=== PATIENT | female | born 2000 | race Hispanic/Latino ===

== ENCOUNTER 2021-09-03 14:04 | Emergency (ER) | payer OTHER, SELFPAY ==
[2021-09-03] VITALS (19 sets, daily range): BP systolic 88–106; BP diastolic 50–68; PULSE 58–81; RESP 13–20; TEMP 36.3; O2SAT 95–100
[2021-09-03 14:41] LABS: Basophils Percent Auto 0.5 % (0.2-1.2); Eosinophils Absolute Auto 0.1 K/mm3 (0-0.3); Eosinophils Percent Auto 0.8 % (0-4.4); Hematocrit 36.1 % (37.0-47.0); Hemoglobin 12.3 g/dL (12.0-15.0); Immature Granulocyte Absolute 0.02 K/mm3 (0.00-0.031); Immature Granulocyte Percent A 0.3 % (0-0.5); Lymphocytes Absolute Auto 2.79 K/mm3 (0.9-3.2); Lymphocytes Percent Auto 38.2 % (18.3-44.2); Mean Corpuscular HGB Conc 34.1 g/dl (32-36); Mean Corpuscular Hemoglobin 28.5 pg (26-34); Mean Corpuscular Volume 83.8 fl (80-100); Monocytes Absolute Auto 0.4 K/mm3 (0.1-0.6); Neutrophils Percent Auto 54.2 % (45.5-73.1); Platelet Count Result 275 k/mm3 (150-375); Red Blood Count 4.31 M/mm3 (4.2-5.4); Red Cell Distribution Width 12.2 % (11.5-14.5); White Blood Count 7.3 K/mm3 (4.5-10.0)
[2021-09-03 14:48] LABS: Alanine Aminotransferase 17 U/L (6-35); Albumin Level 4.5 g/dL (3.5-5.1); Alkaline Phosphatase 68 U/L (38-126); Anion Gap 6 mmol/L (8-16); Aspartate Amino Transferase 23 U/L (14-36); Bilirubin,Total 0.4 mg/dL (0.2-1.3); Blood Urea Nitrogen 8 mg/dL (7-17); Carbon Dioxide 23 mmol/L (22-30); Chloride 104 mmol/L (98-107); Estimated CRCL calculation 123 ml/min; Estimated Glomerular Filt Rate > 60; Glucose 92 mg/dL (65-110); Lipase 27 U/L (23-300); Sodium 133 mmol/L (137-145)
[2021-09-03 15:05] LABS: Appearance Urine Clear (Clear); Bilirubin Urine 1+ (Negative); Blood Urine Negative (Negative); Color Urine Yellow (Yellow); Glucose Urine UA Negative (Negative); Ketones Urine 3+ mg/dL (Negative); Leukocyte Esterase Ur Negative LEU/UL (Negative); Nitrate Urine Negative (Negative); Protein Urine Trace mg/dL (Negative); Specific Grav Ur 1.025 (1.001-1.035); Urobilinogen Urine 0.2 mg/dL (<2.0); pH Urine 6.5 (5.0-9.0)
[2021-09-03 15:07] LABS: Mucus Urine Heavy /lpf; RBC Urine 0-2 /hpf (0-2); Squamous Epithelial Cell Urine Rare /hpf (Few); WBC Urine 0-3 /hpf
[2021-09-03 15:12] LABS: Add Urine Microscopic? YES
[2021-09-03] MEDS: ONDANSETRON INJ 4 MG/2 ML VIAL IV PUSH (16:48)
[2021-09-03] MEDS: SODIUM CHLORIDE 0.9% IV 1,000 ML 999 ML IV CONT (16:48)
--- NOTE | 2021-09-03 16:49 | ED.GENADULT ---
HPI - General Adult General Chief complaint: Nausea/Vomiting/Diarrhea Stated complaint: vomiting/ Time Seen by Provider: 09/03/21 15:47 History of Present Illness HPI narrative: Patient is a 21-year-old female who presents ER with nausea and vomiting. Worse for the last 3 days. She believes she has vomited 30 times. She is 8 weeks and has not yet seen her OB. No abdominal pain. No vaginal bleeding or vaginal discharge. She is G2, P1. Denies fevers or chills or sweats. No diarrhea. She does feel some mild constipation. Related Data Allergies Allergy/AdvReac Type Severity Reaction Status Date / Time No Known Allergies Allergy Unverified 09/03/21 15:50 Review of Systems Review of Systems: All systems reviewed & are unremarkable except as noted in HPI and below Constitutional: Constitutional: Denies chills, Denies fever(s) and Denies weakness ENT: Denies nasal congestion and Denies sore throat Cardiovascular: Cardiovascular: Denies chest pain, Denies rapid heart rate and Denies radiating jaw, neck or arm pain Respiratory: Respiratory: Denies cough, Denies dyspnea and Denies wheezing Gastrointestinal: Gastrointestinal: Denies abdominal pain, Reports constipation, Denies diarrhea, Reports nausea and Reports vomiting Genitourinary: Genitourinary: Denies abnormal vaginal bleeding, Denies nocturia, Denies dysuria and Denies vaginal discharge PMFSH Past Medical History Medical History (Updated 09/03/21 @ 18:50 by Sadi Suh MD) Depression Surgical History Surgical History (Updated 09/03/21 @ 18:48 by Sadi Suh MD) No pertinent past surgical history Exam Narrative: GENERAL: Well-appearing, well-nourished, and in no acute distress. HEAD: Normocephalic, atraumatic. ENT: Mucous membranes moist. CHEST: Clear to auscultation. No respiratory distress. HEART: Regular rate and rhythm. Normal peripheral pulses. ABDOMEN: Soft, nontender, nondistended. EXTREMITIES: Normal range of motion. No edema. SKIN: Warm, dry, no rash. NEURO: Alert and oriented x3. PSYCH: Normal mood and affect. Course Course Emergency Course: Patient tolerating fluids now she has had Zofran. Discharge home. Vital Signs Vital signs: Vital Signs Temperature 97.4 F L 09/03/21 14:20 Pulse Rate 69 09/03/21 14:20 Respiratory Rate 14 09/03/21 14:20 Blood Pressure 106/68 09/03/21 14:20 Pulse Oximetry 100 09/03/21 14:20 Temperature 97.4 F L 09/03/21 14:20 Pulse Rate 62 09/03/21 18:01 Respiratory Rate 19 09/03/21 18:01 Blood Pressure 100/65 09/03/21 18:01 Pulse Oximetry 99 09/03/21 18:01 Medical Decision Making Vital Signs Vital Signs: Vital Signs Temperature 97.4 F L 09/03/21 14:20 Pulse Rate 69 09/03/21 14:20 Respiratory Rate 14 09/03/21 14:20 Blood Pressure 106/68 09/03/21 14:20 Pulse Oximetry 100 09/03/21 14:20 Temperature 97.4 F L 09/03/21 14:20 Pulse Rate 62 09/03/21 18:01 Respiratory Rate 19 09/03/21 18:01 Blood Pressure 100/65 09/03/21 18:01 Pulse Oximetry 99 09/03/21 18:01 Lab Data Result diagrams: 09/03/21 14:27 09/03/21 14:27 Labs: Lab Results 09/03/21 09/03/21 09/03/21 Range/Units 14:27 14:27 14:43 WBC 7.3 (4.5-10.0) K/mm3 RBC 4.31 (4.2-5.4) M/mm3 Hgb 12.3 (12.0-15.0) g/dL Hct 36.1 L (37.0-47.0) % MCV 83.8 (80-100) fl MCH 28.5 (26-34) pg MCHC 34.1 (32-36) g/dl RDW 12.2 (11.5-14.5) % Plt Count 275 (150-375) k/mm3 MPV 10.0 (7.4-10.4) fl Immature Gran % (Auto) 0.3 (0-0.5) % Neut % (Auto) 54.2 (45.5-73.1) % Lymph % (Auto) 38.2 (18.3-44.2) % [place] % (Auto) 6.0 (2.6-8.5) % Eos % (Auto) 0.8 (0-4.4) % Baso % (Auto) 0.5 (0.2-1.2) % Lymph # (Auto) 2.79 (0.9-3.2) K/mm3 [place] # (Auto) 0.4 (0.1-0.6) K/mm3 Eos # (Auto) 0.1 (0-0.3) K/mm3 Baso # (Auto) 0.0 (0.0-0.1) K/mm3 Abs Immat Gran (auto)
== END 2021-09-03 18:59 | disposition home or self-care (01) ==
PROVIDERS: Emergency Medicine; Emergency Provider Emergency Medicine
DX: O21.9 Vomiting of pregnancy, unspecified (principal); Z3A.08 8 weeks gestation of pregnancy
CPT/HCPCS: 36415; 80053; 81001; 83690; 85025; 96361; 96374; 99284; J2405; J7030

== ENCOUNTER 2022-04-05 15:56 | Inpatient (IN) | payer OTHER, SELFPAY ==
[2022-04-05] VITALS (38 sets, daily range): BP systolic 117–148; BP diastolic 66–95; PULSE 78–110; O2SAT 100; BMI 32.9
--- NOTE | 2022-04-05 15:56 | LDADM ---
This patient, Catarino Hillman, was admitted to Labor/Delivery/Recovery 108 on 04/05/22 at 15:56. Plans for labor, pain management and were discussed with patient. Patient/family oriented to hospital policies and general routines including ID bracelet, bed and alarms, visiting hours, pain management, procedures, bathroom and other care routines, personal items, smoking policy, room service/diet and guest tray routines, infant security routines, and visiting hours. Patient/Family are encouraged to report perceived risks to care and to ask questions if they do not understand what they are told or what they should do. See OBIX for further documentation.
[2022-04-05 16:46] LABS: Basophils Percent Auto 0.3 % (0.2-1.2); Eosinophils Absolute Auto 0.1 K/mm3 (0-0.3); Eosinophils Percent Auto 1.3 % (0-4.4); Hematocrit 31.9 % (37.0-47.0); Hemoglobin 10.5 g/dL (12.0-15.0); Immature Granulocyte Absolute 0.04 K/mm3 (0.00-0.031); Immature Granulocyte Percent A 0.6 % (0-0.5); Lymphocytes Absolute Auto 2.19 K/mm3 (0.9-3.2); Lymphocytes Percent Auto 31.6 % (18.3-44.2); Mean Corpuscular HGB Conc 32.9 g/dl (32-36); Mean Corpuscular Hemoglobin 26.8 pg (26-34); Mean Corpuscular Volume 81.4 fl (80-100); Mean Platelet Volume 10.9 fl (7.4-10.4); Monocytes Absolute Auto 0.7 K/mm3 (0.1-0.6); Monocytes Percent Auto 9.4 % (2.6-8.5); Neutrophils Absolute Auto 3.9 K/mm3 (1.3-6.7); Neutrophils Percent Auto 56.8 % (45.5-73.1); Platelet Count Result 231 k/mm3 (150-375); Red Blood Count 3.92 M/mm3 (4.2-5.4); Red Cell Distribution Width 14.8 % (11.5-14.5); White Blood Count 6.9 K/mm3 (4.5-10.0)
[2022-04-05] MEDS: LACTATED RINGERS 1,000 ML 125 ML IV CONT ×2 (16:52→20:09)
[2022-04-05] MEDS: AMPICILLIN 2 GM/NS 100 ML 2 GM/100 ML BAG IVPB (16:53)
[2022-04-05] MEDS: OXYTOCIN 30 UNITS/NS 500 ML 30 UNITS/500 ML BAG IV CONT (16:53)
[2022-04-05] MEDS: AMPICILLIN 1 GM/NS 50 ML 1 GM/50 ML BAG IVPB (22:32)
--- NOTE | 2022-04-05 22:37 | PM.IMHP ---
H&P: HPI History of Present Illness Date/Time: 04/05/22 22:37 Chief Complaint: induction of labor Narrative: Apoc is a 21yo at 39.2 for elective IOL. only complicated by anemia and GBS pos. Review of Systems Review of Systems: All systems reviewed & are unremarkable except as noted in HPI and below PMFSH Past Medical History Medical History (Updated 04/05/22 @ 22:38 by Seda Park MD) Depression Surgical History Surgical History (Updated 09/03/21 @ 18:48 by Sadi Suh MD) No pertinent past surgical history Family History Family History (Updated 03/19/22 @ 14:41 by Yulia Aguilar RN) Other Patient denies significant medical history Social History Social History (Updated 09/03/21 @ 18:48 by Sadi Suh MD) Smoking status: Never smoker Substance use: never Lack of Transportation: No Lack of Food: Never True Current Housing: I Have Housing Concerned About Future Housing: No Difficulty Paying Gas/Electric Bills: No Difficulty Paying for Meds: No Currently Unemployed: No Education: Decline to Answer Difficulty w/ Childcare or Family Care: No Spiritual care concerns: No Meds Home Medications and Allergies Home Medications Medication Instructions Recorded Confirmed Type ferrous sulfate 325 mg (65 mg 325 mg PO DAILY 03/19/22 03/19/22 History iron) tablet prenat.vits,jimi,[id number] 1 tablet PO DAILY 03/19/22 03/19/22 History Allergies Allergy/AdvReac Type Severity Reaction Status Date / Time No Known Allergies Allergy Unverified 09/03/21 15:50 Vital Signs Vital Signs - 24 hr 04/05/22 16:30 04/05/22 16:45 04/05/22 17:00 Pulse Rate 90 90 88 Blood Pressure 118/82 121/80 122/89 04/05/22 17:15 04/05/22 17:30 04/05/22 17:45 Pulse Rate 91 89 109 H Blood Pressure 121/75 120/85 125/83 04/05/22 18:00 04/05/22 18:15 04/05/22 18:30 Pulse Rate 81 91 84 Blood Pressure 122/78 126/90 127/87 04/05/22 18:45 04/05/22 19:00 04/05/22 19:15 Pulse Rate 89 80 84 Blood Pressure 119/88 129/84 126/89 04/05/22 19:30 04/05/22 19:45 04/05/22 20:05 Pulse Rate 79 79 82 Blood Pressure 132/89 131/91 H 125/86 04/05/22 20:15 04/05/22 20:30 04/05/22 20:45 Pulse Rate 78 86 87 Blood Pressure 121/81 118/85 123/89 04/05/22 21:00 04/05/22 21:15 04/05/22 21:30 Pulse Rate 80 78 79 Blood Pressure 127/86 134/95 H 128/80 04/05/22 21:45 04/05/22 22:00 04/05/22 22:15 Pulse Rate 84 83 84 Blood Pressure 117/85 126/78 121/89 04/05/22 22:30 Pulse Rate 84 Blood Pressure 125/93 H Exam Const: General: no acute distress Resp: Effort & Inspection: normal respiratory effort Auscultation: clear to auscultation bilaterally Cardio: Rate: regular rate Rhythm: regular rhythm GI: GI Palp: Yes Soft to palpation Extrem: General: normal to inspection H&P: Results Labs Labs: Short CBC 04/05/22 Range/Units 16:40 WBC 6.9 (4.5-10.0) K/mm3 Hgb 10.5 L (12.0-15.0) g/dL Hct 31.9 L (37.0-47.0) % Plt Count 231 (150-375) k/mm3 Assessment and Plan Assessment and plan (1) Elective induction of labor planned: Status: Acute Plan antibiotics s/p 2 doses for GBS pos AROM clear 5/60/-3 FHT category 1 anticipate iupc placed, continue pitocin
[2022-04-06] VITALS (54 sets, daily range): BP systolic 98–146; BP diastolic 60–113; PULSE 61–125; RESP 16–18; TEMP 36.6–37.5; O2SAT 75–100
--- NOTE | 2022-04-06 00:07 | WPDANESEPPF ---
Anes - Initial Pre Proc Eval Procedure: Labor epidural Date/Time: 04/06/22 00:07 Surgeon: Seda Park MD Pre Op Diagnosis: Pain c contractions Pre Op Diagnosis: IOL Patient Data Age: 21 Gender: F Height: 1.63 m Weight: 87 kg Last Vital Signs Pulse 79 04/06/22 00:05 BP 123/78 04/06/22 00:05 Pulse Ox 100 04/06/22 00:03 Allergies Allergy/AdvReac Type Severity Reaction Status Date / Time No Known Allergies Allergy Unverified 09/03/21 15:50 Home Medications Medication Instructions Recorded Confirmed Type ferrous sulfate 325 mg (65 mg 325 mg PO DAILY 03/19/22 03/19/22 History iron) tablet prenat.vits,jimi,[id number] 1 tablet PO DAILY 03/19/22 03/19/22 History Laboratory Tests 04/05/22 04/05/22 04/05/22 16:40 16:40 16:40 WBC 6.9 K/mm3 K/mm3 (4.5-10.0) RBC 3.92 M/mm3 L M/mm3 (4.2-5.4) Hgb 10.5 g/dL L g/dL (12.0-15.0) Hct 31.9 % L % (37.0-47.0) MCV 81.4 fl fl (80-100) MCH 26.8 pg pg (26-34) MCHC 32.9 g/dl g/dl (32-36) RDW 14.8 % H % (11.5-14.5) Plt Count 231 k/mm3 k/mm3 (150-375) MPV 10.9 fl H fl (7.4-10.4) Immature Gran % (Auto) 0.6 % H % (0-0.5) Neut % (Auto) 56.8 % % (45.5-73.1) Lymph % (Auto) 31.6 % % (18.3-44.2) [place] % (Auto) 9.4 % H % (2.6-8.5) Eos % (Auto) 1.3 % % (0-4.4) Baso % (Auto) 0.3 % % (0.2-1.2) Lymph # (Auto) 2.19 K/mm3 K/mm3 (0.9-3.2) [place] # (Auto) 0.7 K/mm3 H K/mm3 (0.1-0.6) Eos # (Auto) 0.1 K/mm3 K/mm3 (0-0.3) Baso # (Auto) 0.0 K/mm3 K/mm3 (0.0-0.1) Abs Immat Gran (auto) 0.04 K/mm3 H K/mm3 (0.00-0.031) Absolute Neuts (auto) 3.9 K/mm3 K/mm3 (1.3-6.7) Absolute Nucleated RBC 0.0 K/mm3 K/mm3 (0.0-0.012) Nucleated RBC % 0.0 % % (0.0-0.2) RPR Pending Blood Type O Positive Antibody Screen Negative Patient hx anesthesia problems: none Family hx anesthesia problems: none Results Review: All pre-operative results and documents have been reviewed as part of the pre-operative evaluation. [facility] Past Medical History Medical History Depression Surgical History Surgical History No pertinent past surgical history Family History Family History Other Patient denies significant medical history Social History Social History Smoking status: Never smoker Substance use: never Lack of Transportation: No Lack of Food: Never True Current Housing: I Have Housing Concerned About Future Housing: No Difficulty Paying Gas/Electric Bills: No Difficulty Paying for Meds: No Currently Unemployed: No Education: Decline to Answer Difficulty w/ Childcare or Family Care: No Spiritual care concerns: No Anes - Eval Final PreProcedure Day of Procedure 04/06/22 00:07 Patient weight: normal Heart: regular rate and rhythm Lungs: clear to auscultation Airway: Mallampati scale class II Neurological: alert and oriented Last oral intake: 4 hours ASA classification: II Emergent: no Anesthetic plan: proceed Anesthesia type and monitoring: regional epidural and standard monitoring Results Review: All pre-operative results and documents have been reviewed as part of the pre-operative evaluation. Informed Consent: The patient's anesthetic plan and its attendant risks and benefits were discussed with the patient/family/POA. Questions were solicited and answers provided to the satisfaction of the patient/family/POA.
--- NOTE | 2022-04-06 00:09 | WPDANESEPN ---
Anes - Epidural Procedure Note Date/Time: 04/06/22 00:09 Consent: I have discussed with the patient/family/POA, the placement of an epidural catheter and the use of epidural narcotic/local anesthetic for labor analgesia and/or postoperative pain management, including associated potential risks, benefits, complications and side effects. I have discussed alternative methods of labor analgesia and/or postoperative pain management. The patient/family/POA, understand(s) and wish(es) to proceed with epidural narcotic/local anesthetic for labor analgesia and/or postoperative pain management. Time-Out: A pre-procedural Time-Out was completed immediately before starting the procedure and confirmed: Patient Identification, Site, Procedure, Patient Position and the Availability of Requisite Equipment. Clinical Indications: Pain c contractions Epidural Insertion Note Patient position: sitting Skin prep: chlorhexidine and sterile drape Needle: 18g Tuohy-Schliff Catheter: 20g Unstyleted Technique: Loss of resistance. Level of insertion: L3/4 Catheter skin danita (cm): 5 Length in epidural space (cm): 10 Skin anesthesia: lidocaine 1% Test dose: 1.5% Lidocaine with [id number] Epi, negative for subarachnoid Inj and negative for intravascular Inj Time of test dose: 23:54 Observations: tolerated well Complications: none
--- NOTE | 2022-04-06 02:44 | PM.OBPRVD ---
OB - Delivery Note Procedure Delivery date: 04/06/22 Procedure: Events: Positive Group B Strep (GBS) Induction method: AROM and Per Pitocin Protocol Delivery monitor: External FHT and Internal Uterine Route of delivery: Laceration Description: None Quantitative Blood Loss (ml): 120 Anesthesia type: Epidural Disposition: Floor Narrative: The delivery was a precipitous nurse delivery and I arrived two minutes after delivery of baby. Placenta delivered spontaneously shortly thereafter. No lacerations. EBL 120cc. Mother and baby both stable. [place] Baby Date of : 04/06/22 Time of : 02:25 Weeks of gestation at delivery: 39 Infant gender: Female Weight (pounds): 7 Weight (ounces): 4 presentation: vertex Placenta delivery description: Spontaneous Cord Vessel Description: 3 Vessels score one minute: 9 score five minutes: 9
--- NOTE | 2022-04-06 05:29 | OBPPTRN ---
04/06/2022 at 0454 Patient transferred to post room #287 via wheelchair. Support person present. Oriented to unit, room, information board, rooming in, admission packet and security measures. Patient verbalizes understanding.
[2022-04-06] MEDS: DOCUSATE SODIUM 100 MG CAPSULE PO (08:30)
[2022-04-06] MEDS: MULTIVIT/MIN/PREN/FOL AC/IRON TABLET 1 TAB PO (08:30)
[2022-04-06] MEDS: IBUPROFEN 600 MG TABLET PO ×2 (08:30→16:27)
[2022-04-06] MEDS: ACETAMINOPHEN 325 MG TABLET 650 MG PO (13:36)
[2022-04-07] MEDS: ACETAMINOPHEN 325 MG TABLET 650 MG PO ×2 (03:15→19:45)
[2022-04-07 05:42] LABS: Hematocrit 27.8 % (37.0-47.0)
--- NOTE | 2022-04-07 07:12 | PM.OBPNVD ---
OB - PN: Subj Subjective Date/time seen: 04/07/22 07:12 Patient comments: no complaints and pain well controlled baby status: nursing well [place] feeding status: exclusively breast feeding OB - PN: Obj Data Labs 04/07/22 03:18 Labs: Laboratory Results - last 24 hr 04/07/22 03:18 Hgb 9.0 L Hct 27.8 L OB - PN A/P Plan day: 1 Plan: routine care Time Spent With Patient Time: Total time spent is greater than 50% in coordination of care (as documented) at patient's floor/unit and/or counseling patient: Time with patient: less than 15 minutes Exam Narrative: NAD abdomen soft, nontender, fundus firm below the umbilicus Extremities nontender, 1+ edema
[2022-04-07 08:15] VITALS: TEMP 36.6
[2022-04-07] MEDS: IBUPROFEN 600 MG TABLET PO ×2 (08:15→16:30)
[2022-04-07] MEDS: MULTIVIT/MIN/PREN/FOL AC/IRON TABLET 1 TAB PO (08:16)
[2022-04-07] MEDS: POLYSACCHARIDE IRON COMPLEX 150 MG CAPSULE PO ×2 (08:16→16:30)
[2022-04-07] MEDS: DOCUSATE SODIUM 100 MG CAPSULE PO ×2 (08:16→16:30)
[2022-04-07 08:35] VITALS: BP 112/69; PULSE 79; RESP 16; TEMP 37; O2SAT 100
[2022-04-07 09:16] LABS: Rapid Plasma Reagin Non-Reactive (NonReactive)
--- NOTE | 2022-04-07 10:33 | PC.NURSE ---
[id number] Introductions were made. Mother is napping and states she just finished feeding her baby, Resources provided for inpatient. Encouraged waking with skin to skin, massage touch, checking diaper with between [phone] and to look for feeding cues for responsive . Mother voiced understanding of information and will call if there is a request for assistance. Reported to primary RN.
--- NOTE | 2022-04-07 10:36 | WPDANLDPN2 ---
Anes-Prog Note L&D Date/Time: 04/07/22 10:36 Neuro status: Neuro function grossly intact. Vital Signs: Last Vital Signs Temp 37.0 C 04/07/22 08:35 Pulse 79 04/07/22 08:35 Resp 16 04/07/22 08:35 BP 112/69 04/07/22 08:35 Pulse Ox 100 04/07/22 08:35 O2 Del Method Room Air 04/07/22 08:15 Pain score (VAS): 0 I/O: Intake & Output 04/06/22 04/07/22 04/07/22 23:59 07:59 15:59 Intake Total 240 Balance 240 Patient feedback: Patient satisfied with anesthetic care.
--- NOTE | 2022-04-07 11:20 | PC.NURSE ---
[id number] Mother requested consulted with patient to assess needs related to . Mother led the conversation with her experience feeding her so far, states she starting practicing this morning and did not breastfeed her first infant. Infant has been fed the formula bottle since . Mother works well with her with encouragement and education. Encouraged understanding of the benefits of skin to skin (unwrapping and placing vertically on her chest), massage touch, changing diaper (wet and transitional stool changed), responsive feeding and how to watch for early feeding signs, frequency of feeding on demand about every 8-12 times in 24 hours (every 2-3 hours), milk production, duration of feeding, signs of adequate intake/output and how to record on the feeding sheet. Discussed the importance of pumping if doesn't latch optimally to build a milk supply and reviewed supply/demand. Reviewed positioning and ear, shoulder, hip alignment, supporting the breast, asymmetrical latch (off-center), and leading with the chin with a big open side gape. made several attempt to the right breast in football position but only shallow latches were observed. was unable to maintain latch without discomfort to mother. Nipple care reviewed with optimal latch and good positioning. Reviewed the risks and benefits of bottle feeding, pumping and not practicing . Mother voiced understanding of responsive feedings, stimulating with skin to skin, massage touch, talking to infant to encourage if it has been 2 -3 hours since the start of the last , to call if infant does not latch or there is discomfort with . Mother made a decision to bottle feed. Reviewed milk production, suggested pumping (mother declined at this time) and to continue to practice as infant grows and learns. Mother voiced understanding of information. Mother wants to eat lunch and visitor will bottle feed . Reported to the primary RN.
[2022-04-07 16:30] VITALS: BP 120/85; PULSE 86; RESP 16; TEMP 36.9; O2SAT 100
[2022-04-07 19:45] VITALS: BP 116/67; PULSE 82; RESP 16; TEMP 36.9
[2022-04-08 07:40] VITALS: BP 113/82; PULSE 72; RESP 18; TEMP 37; O2SAT 100
[2022-04-08 08:30] VITALS: PULSE 72; RESP 18; O2SAT 100
[2022-04-08] MEDS: DOCUSATE SODIUM 100 MG CAPSULE PO (08:30)
[2022-04-08] MEDS: POLYSACCHARIDE IRON COMPLEX 150 MG CAPSULE PO (08:30)
[2022-04-08] MEDS: MULTIVIT/MIN/PREN/FOL AC/IRON TABLET 1 TAB PO (08:30)
[2022-04-08] MEDS: ACETAMINOPHEN 325 MG TABLET 650 MG PO (08:30)
--- NOTE | 2022-04-08 08:35 | PM.OBPNVD ---
OB - PN: Subj Subjective Date/time seen: 04/08/22 08:35 Patient comments: no complaints baby status: doing well [place] feeding status: exclusively bottle feeding OB - PN: Obj Data Labs 04/07/22 03:18 Labs: Laboratory Results - last 24 hr 04/05/22 16:40 RPR Non-reactive OB - PN A/P Assessment and Plan (1) , delivered: Code(s): O80 - Encounter for full-term uncomplicated delivery Status: Acute Plan day: 2 Plan: routine care and discharge home Time Spent With Patient Time: Total time spent is greater than 50% in coordination of care (as documented) at patient's floor/unit and/or counseling patient: Time with patient: less than 15 minutes Exam Narrative: NAD abdomen soft, nontender, fundus firm below the umbilicus Extremities nontender, 1+ edema
--- NOTE | 2022-04-08 08:38 | P.DS_ITS ---
DS: Admitting Diagnosis Discharge Date 04/08/22 Admitting Diagnosis term DS: Discharge Diagnosis Discharge Diagnosis (1) , delivered: Code(s): O80 - Encounter for full-term uncomplicated delivery Status: Acute OB - DS: Summary Hospital Course Hospital Course: [place] was admitted for elective induction of labor and proceeded to have an uncomplicated delivery and course. She was discharged home on PPD 2. OB Procedures : Ultrasound OB Procedures Intrapartum: Spontaneous Vag Delivery OB Procedures: : None Peripartum Data Infant Delivery Method: Natural Vaginal complications: none Status at Discharge Functional status at discharge: independent ambulation Time Spent with Patient Time attestation: Total time spent providing and/or coordinating discharge services: Exam Narrative: NAD abdomen soft, appropriately tender Ext non tender, 1+ edema DS: Data Data Completed and Pending Labs on day of discharge: Labs from last 24 hours 04/05/22 16:40 RPR Non-reactive Discharge Plan Discharge Attending physician on discharge: Sead Park Discharging Clinician: Seda Park Patient Disposition: Home, Self-Care Activity: pelvic rest Diet: regular Patient Instructions: Antibiotic Form Stand Alone Forms: General Discharge Information Follow-up/Referrals: Seda Park MD [Physician] - 4 Weeks Discharge Medications: Continued ferrous sulfate 325 mg (65 mg iron) Tablet 325 mg PO DAILY #2 Tablet 1 tablet PO DAILY Date of admission: 04/05/22 15:56 Primary Care Provider: PHYSICIAN,SENIOR DATA MINING ANALYST Admitting Provider: Seda Park Attending physician on admission: Seda Park Condition: Stable
== END 2022-04-08 14:30 | disposition home or self-care (01) | DRG 560 ==
LOC: ANHLDR 15:59 → ANHOB2 04-06 05:21
PROVIDERS: Admitting Provider Obstetrics & Gynecology; Visit Provider Obstetrics & Gynecology
DX: O99.824 Streptococcus B carrier state complicating childbirth (principal); O62.3 Precipitate labor; O99.02 Anemia complicating childbirth; O69.81X0 Labor and delivery complicated by cord around neck, without compression, not applicable or unspecified; Z3A.39 39 weeks gestation of pregnancy; Z37.0 Single live birth
CPT/HCPCS: 36415; 85014; 85018; 85025; 86592; 86850; 86900; 86901; A9270; J0290; J2590; J2795; J7120